=== PATIENT | male | born 1985 | race Caucasian/White ===

== ENCOUNTER 2019-11-14 18:47 | Emergency (ER) | payer OTHER ==
[~2019-11-14] VITALS: Ht 177.8 cm; Wt 94.0 kg
[2019-11-14] MEDS ORDERED: IBUPROFEN 800 MG TAB PO ONE (21:15)
[2019-11-14 21:24] VITALS: BP 129/76
--- NOTE | 2019-11-15 08:21 | REP ---
Clinical: Trauma. Technique: AP, lateral, bilateral oblique views right hand . Findings: The osseous structures and joint spaces are intact and normal. There is no evidence for acute fracture or dislocation. Surrounding soft tissues are unremarkable. No subcutaneous emphysema or radiodense foreign body. Impression: No definite acute fracture or dislocation. If the patient remains symptomatic consider reevaluation in 3-5 days. Electronically Signed by Valentin Michael MD 11/15/2019 08:12 A
== END 2019-11-14 21:27 | disposition home or self-care (01) ==
LOC: M ED 18:47 → EDBD 18:47 → M ED 21:27
DX: S60.221A Contusion of right hand, initial encounter (principal); W23.1XXA Caught, crushed, jammed, or pinched between stationary objects, initial encounter; Y92.9 Unspecified place or not applicable; Y93.9 Activity, unspecified; Y99.1 Military activity

== ENCOUNTER → 2024-01-16 | Outpatient (REF) | LOC: M PLAIMG 11:08 | PROVIDERS: ATTEND Internal Medicine | DX: R52 Pain, unspecified (principal) ==